=== PATIENT | female | born 1940 | race Caucasian/White ===

== ENCOUNTER 2017-09-29 13:08 | Emergency (ER) | payer OTHER ==
[~2017-09-29] VITALS: Ht 152.4 cm; Wt 54.5 kg
[2017-09-29 13:19] VITALS: Ht 152.4 cm; Wt 54.5 kg
[2017-09-29] MEDS ORDERED: LEXAPRO10 MG PO (13:22)
[2017-09-29] MEDS ORDERED: CELEXA40 MG PO (13:22)
[2017-09-29] MEDS ORDERED: REMERON15 MG PO (13:23)
[2017-09-29] MEDS ORDERED: REMERON30 MG PO (13:23)
[2017-09-29 15:03] LABS: APPEARANCE HAZY (CLEAR); BILIRUBIN NEGATIVE (NEGATIVE); COLOR DK YELLOW (YELLOW); GLUCOSE NEGATIVE (NEGATIVE); KETONE NEGATIVE (NEGATIVE); NITRITE NEGATIVE (NEGATIVE); PROTEIN TRACE mg/dL (NEGATIVE); SPECIFIC GRAVITY 1.025 (1.005-1.020); UROBILINOGEN NORMAL (NORMAL)
[2017-09-29 15:09] LABS: BACTERIA MODERATE /hpf (NONE SEEN); MUCUS >1+ /lpf (NONE SEEN); RED CELLS - URINE 0-5 /hpf (0-5)
[2017-09-29 16:42] VITALS: BP 108/60
== END 2017-09-29 16:44 | disposition home or self-care (01) ==
LOC: D.ER 13:08
PROVIDERS: Family Medicine
DX: S82.832A Other fracture of upper and lower end of left fibula, initial encounter for closed fracture (principal); W19.XXXA Unspecified fall, initial encounter; Y93.89 Activity, other specified; Y92.019 Unspecified place in single-family (private) house as the place of occurrence of the external cause; M25.552 Pain in left hip; M25.551 Pain in right hip; M25.562 Pain in left knee; M25.561 Pain in right knee; S99.912A Unspecified injury of left ankle, initial encounter

== ENCOUNTER → 2018-02-07 14:18 | Outpatient (CLI) | payer MEDICARE, OTHER ==
[2017-09-29 13:19] VITALS: BMI 23.4
[~2018-02-07 14:18] MED LIST: CELEXA40 MG PO; LEXAPRO10 MG PO; REMERON15 MG PO; REMERON30 MG PO
== END | disposition home or self-care (01) ==
LOC: D.CT 14:18
DX: M54.5 Low back pain (principal)